=== PATIENT | female | born 1950 | race Hispanic/Latino ===

== ENCOUNTER 2024-06-04 21:55 | Emergency (ER) | payer MEDICARE ==
[~2024-06-04] VITALS: Ht 160 cm; Wt 117.5 kg
[~2024-06-04 21:55] MED LIST: ASPI-1197 PO; ATOR40TA71 PO; BACL10TA PO; BENZ-226 PO; CETI10TA57 PO; LATA2.5D14 OP; LEVO125T11 PO; MAGN400C PO; METO-408 PO; MIRA50TA PO; PANT40TA54 PO
--- NOTE | 2024-06-04 22:15 | ERN ---
General Chief Complaint: Vaginal Problems/Bleeding Stated Complaint: VAGINAL BLEEDING Time Seen by MD: 22:06 History of Present Illness Initial Comments Patient is a 74-year-old female with past medical history of hypertension hypothyroidism who comes in with concerns of bleeding out of her vagina. The bleeding is not profuse but it has been steady through the day. She does have an appointment with her family practice physician in the morning she just wanted to make sure that her bleeding did not represent a severe problem. Timing/Duration: 24 hours Allergies: Coded Allergies: No Known Drug Allergies (Unverified Allergy, Unknown, 01/28/24) Home Meds Reported Medications Magnesium Oxide (Magnesium) 400 Mg Magnesium Capsule, 1 CAP PO DAILY for 30 Days, #30 CAP 0 Refills 01/28/24 Latanoprost (Latanoprost) 0.005 % Drops, 1 DROP OP HS, ML 0 Refills 01/28/24 Cetirizine HCl (Cetirizine HCl) 10 Mg Tablet, 1 TAB PO HS 01/28/24 Pantoprazole Sodium (Pantoprazole Sodium) 40 Mg Tablet.dr, 1 TAB PO DAILY 01/28/24 Baclofen (Baclofen) 10 Mg Tablet, 1 TAB PO DAILY 01/28/24 Levothyroxine Sodium (Levothyroxine Sodium) 125 Mcg Tablet, 1 TAB PO DAILY 01/28/24 Mirabegron (Myrbetriq) 50 Mg Tab.er.24h, 1 TAB PO DAILY 01/28/24 Benzonatate (Benzonatate) 100 Mg Capsule, 1 CAP PO TID 01/28/24 Metoprolol Succinate (Metoprolol Succinate) 25 Mg Tab.er.24h, 1 TAB PO DAILY 01/28/24 Atorvastatin Calcium (Atorvastatin Calcium) 40 Mg Tablet, 1 TAB PO DAILY 01/28/24 Aspirin (Aspirin) 81 Mg Tab.chew, 1 TAB PO DAILY 01/28/24 Past Medical History Past Medical History: Hypertension, Other Medical History Other: THYROID Past Surgical History: Other Surgical History Other: UNKNOWN ABD Physical Exam General Appearance: (+) no apparent distress Orientation: (+) alert Head/Face Trauma: No Eye: bilateral eye normal inspection, bilateral eye PERRL, bilateral eye EOMI Ear, Nose, Throat: (+) hearing grossly normal, (+) normal ENT inspection Neck: (+) normal inspection, (+) supple Respiratory: (+) chest non-tender, (+) lungs clear, (+) well ventilated Heart: (+) regular Vascular: (+) no edema Gastrointestinal: (+) soft, (+) non-tender, (+) bowel sound present Genital: (+) vaginal lesion Genital Comment I did a speculum exam of her vagina and I saw what appeared to be irregular growths in the superior portion of the vaginal tissue. It did not see any active bleeding. I did not see blood coming out of the cervix. Results Laboratory and Microbiology Lab and Micro Result Laboratory Tests Test 06/04/24 22:27 06/04/24 23:00 White Blood Count 9.4 K/uL (4.8-10.8) Red Blood Count 4.32 MIL/uL (4.00-5.50) Hemoglobin 13.1 g/dL (12.0-16.0) Hematocrit 39.9 % (36-48) Mean Corpuscular Volume 92.4 fL (79-99) Mean Corpuscular Hemoglobin 30.3 pg (27.0-33.0) Mean Corpuscular Hemoglobin Concent 32.8 g/dL (32.0-36.0) Red Cell Distribution Width 14.6 % (11.0-15.5) Platelet Count 207 K/uL (130-400) Mean Platelet Volume 10.8 fL (7.5-10.5) H Immature Granulocyte % (Auto) 0.7 % (0-1) Neutrophils (%) (Auto) 66.8 % (40.0-77.0) Lymphocytes (%) (Auto) 21.8 % (21.0-51.0) Monocytes (%) (Auto) 8.6 % (3.0-13.0) Eosinophils (%) (Auto) 1.6 % (0.0-8.0) Basophils (%) (Auto) 0.5 % (0.0-5.0) Neutrophils # (Auto) 6.3 K/uL (1.8-7.7) Lymphocytes # (Auto) 2.0 K/uL (1.0-4.8) Monocytes # (Auto) 0.8 K/uL (0.1-1.0) Eosinophils # (Auto) 0.15 K/uL (0.00-0.70) Basophils # (Auto) 0.05 K/uL (0.00-0.20) Absolute Immature Granulocyte (auto 0.07 K/uL (0-1) Nucleated Red Blood Cells 0.0 % (0.0-0.19) Urine Color YELLOW (YELLOW) Urine Appearance CLEAR (CLEAR) Urine pH 5.5 (5.0-8.0) Urine Specific [place] 1.032 (1.001-1.031) Urine Protein 20 mg/dL (NEGATIVE) H Urine Glucose (UA) NEGATIVE mg/dL (NEGATIVE) Urine Ketones NEGATIVE mg/dL (NEGATIVE) Urine Occult Blood LARGE (NEGATIVE) H Urine Nitrate NEGATIVE (NEGATIVE) Urine Bilirubin NEGATIVE mg/dL (NEGATIVE) Urine Urobilinogen 0.2 mg/dL (0.2-1.0) Urine Leukocyte Esterase 250 [place]/uL (NEGATIVE) H Urine RBC 6-10 /HPF (0-1) H Urine WBC 26-50 /HPF (0-1) H Urine Squamous Epithelial Cells RARE /HPF (0-2) Urine Bacteria MOD /HPF (None Seen) MDM In addition to a speculum exam vaginal exam I ordered a CBC to make sure patient is not anemic and a UA to rule out infection. The CBC is normal and her hemoglobin is at a healthy level. Her urine has a lot of blood in it along with strong leukocyte esterase activity and bacteria. The vaginal lesions may represent polyps and they maybe normal but they need to be examined by a cuff runner. In the meantime I will prescribe patient some antibiotics for possible UTI. ED Course Orders Procedure Category Date Status Time Urinalysis Profile LAB 06/04/24 Complete 22:15 Cbc With Differential LAB 06/04/24 Complete 22:15 Culture Urine LAQUITA 06/04/24 In Process 23:10 Vital Signs Date Time Temp Pulse Resp B/P (MAP) Pulse Ox O2 Delivery O2 Flow Rate FiO2 06/04/24 21:56 98.1 76 18 153/84 96 Room Air DX & DISP Disposition: Discharge Departure Impression: Primary Impression: UTI (urinary tract infection) Additional Impression: Vaginal polyp Condition: Stable Scripts Cephalexin Monohydrate (Keflex) 500 Mg Cap 500 MG PO QID for 7 Days, #28 CAP Prov: SHARON NEELY MD 06/04/24 Additional Instructions: Patient will be seeing her primary care physician in the morning at that time they will ask for a referral to a cuff runner. Please return if the bleeding becomes more profuse and does not slow down and if you become dizzy or lightheaded. In the meantime you could wear a tampon or napkin. Referrals: JESSICA PALAFOX M.D. (PCP) SHARON NEELY MD Jun 04, 2024 22:15
[2024-06-04 22:44] LABS: BASOPHILS # (AUTO) 0.05 K/uL (0.00-0.20); BASOPHILS % (AUTO) 0.5 % (0.0-5.0); EOSINOPHILS # (AUTO) 0.15 K/uL (0.00-0.70); EOSINOPHILS % (AUTO) 1.6 % (0.0-8.0); HEMATOCRIT 39.9 % (36-48); IMMATURE GRANULOCYTE ABSOLUTE 0.07 K/uL (0-1); LYMPHOCYTES % (AUTO) 21.8 % (21.0-51.0); MEAN CORPUSCULAR HEMOGLOBIN 30.3 pg (27.0-33.0); MEAN CORPUSCULAR HGB CONC 32.8 g/dL (32.0-36.0); MEAN CORPUSCULAR VOLUME 92.4 fL (79-99); MONOCYTES # (AUTO) 0.8 K/uL (0.1-1.0); MONOCYTES % (AUTO) 8.6 % (3.0-13.0); NEUTROPHILS # (AUTO) 6.3 K/uL (1.8-7.7); NEUTROPHILS % (AUTO) 66.8 % (40.0-77.0); PLATELET COUNT (AUTO) 207 K/uL (130-400); RED BLOOD CELL COUNT(AUTO) 4.32 MIL/uL (4.00-5.50); RED CELL DISTRIBUTION WIDTH 14.6 % (11.0-15.5); WHITE BLOOD COUNT (AUTO) 9.4 K/uL (4.8-10.8)
[2024-06-04 23:09] LABS: ADD UA MICROSCOPIC YES; APPEARANCE,URINE CLEAR (CLEAR); BILIRUBIN,URINE NEGATIVE (NEGATIVE); COLOR,URINE YELLOW (YELLOW); GLUCOSE, URINE (UA) NEGATIVE (NEGATIVE); KETONES,URINE NEGATIVE (NEGATIVE); LEUKOCYTE ESTERASE ,URINE 250 Leu/uL (NEGATIVE); NITRATE,URINE NEGATIVE (NEGATIVE); OCCULT BLOOD,URINE LARGE (NEGATIVE); PH,URINE 5.5 (5.0-8.0); PROTEIN,URINE 20 mg/dL (NEGATIVE); UROBILINOGEN,URINE 0.2 mg/dL (0.2-1.0)
[2024-06-04 23:11] LABS: BACTERIA,URINE MOD /HPF (None Seen); MUCUS,URINE RARE LPF (None Seen); SQUAMOUS EPITHELIAL CELL,UR RARE /HPF (0-2); WBC,URINE 26-50 /HPF (0-1)
[2024-06-04] MEDS ORDERED: CEPH500B PO (23:23)
[2024-06-04 23:58] VITALS: BP 131/76; PULSE 72; RESP 18; TEMP 98; O2SAT 98
== END 2024-06-04 23:59 | disposition home or self-care (01) ==
LOC: EDH 21:55
DX: N39.0 Urinary tract infection, site not specified (principal); N84.2 Polyp of vagina; E03.9 Hypothyroidism, unspecified; I10 Essential (primary) hypertension; Z79.82 Long term (current) use of aspirin; Z79.890 Hormone replacement therapy; Z79.899 Other long term (current) drug therapy
CPT/HCPCS: 36415; 81001; 85025; 87086; 99283; 99284